=== PATIENT | female | born 1980 | race Caucasian/White ===

== ENCOUNTER 2018-06-13 14:26 | Inpatient (IN) | payer OTHER ==
[~2018-06-13] VITALS: Ht 154.9 cm; Wt 3.2 kg
[2018-06-13] MEDS ORDERED: PRENATABS RX T1 EACH PO (15:21)
== END 2018-06-20 12:10 | DRG 788 ==
LOC: O/R 06-17 12:16 → SURG-SUITE 06-17 12:16 → OB/GYN 06-17 14:22 → SURG-SUITE 06-17 22:00
PROVIDERS: ADMIT Obstetrics & Gynecology
PROC: 4A1HXCZ Monitoring of Products of Conception, Cardiac Rate, External Approach (ICD-10-PCS; 2018-06-17)
PROC: 10D00Z1 Extraction of Products of Conception, Low, Open Approach (ICD-10-PCS; principal; 2018-06-17 15:30)
DX: O82 Encounter for cesarean delivery without indication (principal); Z3A.39 39 weeks gestation of pregnancy; Z37.0 Single live birth